=== PATIENT | female | born 1985 | race Caucasian/White ===

== ENCOUNTER 2024-06-24 06:41 | Day surgery (SDC) | payer OTHER ==
[2012-02-17 20:41] VITALS: BP 139/88
[2024-06-24] MEDS ORDERED: dexAMETHasone sodium phosphate IJ ONE (06:42)
[2024-06-24] MEDS ORDERED: Sodium Chloride 0.9(Preservative Free) 10 ML IJ ONE (06:42)
[2024-06-24 07:13] LABS: HCG URINE TEST NEGATIVE (NEGATIVE)
[2024-06-24] MEDS ORDERED: propofoL IV ONE (08:37)
--- NOTE | 2024-06-24 11:07 | XRAY ---
Indication: Left L4-S1 transforaminal TWIN. Intraoperative fluoroscopy provided for 27 seconds. 4 digital spot image submitted for interpretation demonstrates posterior needle tips projecting over expected left L4 and L5 nerve roots. Small amount of contrast injected for needle tip placement. Correlate with intraoperative findings/report.
--- NOTE | 2024-06-24 11:09 | XRAY ---
27 seconds of fluoroscopy was used in surgery for a left L4-S1 transforaminal TWIN.
== END 2024-06-24 09:05 | disposition home or self-care (01) ==
LOC: SDC-PAIN 06:41
PROVIDERS: ATTEND Psychiatry & Neurology Pain Medicine
DX: M54.16 Radiculopathy, lumbar region (principal); E11.9 Type 2 diabetes mellitus without complications
CPT/HCPCS: 64483; 64484; 72100; 77003; 81025; 82947; J1100; J2704; Q9966

== ENCOUNTER 2025-01-05 06:45 | Day surgery (SDC) | payer OTHER ==
[2012-02-17 20:41] VITALS: BP 139/88
[2025-01-05] MEDS ORDERED: LIDOCAINE HCL 1% 50 MG/5 ML VL IJ ONE (06:46)
[2025-01-05] MEDS ORDERED: Sodium Chloride 0.9(Preservative Free) 10 ML IJ ONE (06:46)
[2025-01-05] MEDS ORDERED: methylPREDNISolone acetate IM ONE (06:46)
[2025-01-05 07:32] LABS: HCG URINE TEST NEGATIVE (NEGATIVE)
[2025-01-05] MEDS ORDERED: propofoL IV ONE (08:32)
[2025-01-05] MEDS ORDERED: MORPHINE SULFATE 2 MG INJ ONE (08:53)
[2025-01-05] MEDS ORDERED: Lactated Ringers 1,000 ML IV ONE (09:04)
--- NOTE | 2025-01-05 11:55 | XRAY ---
Indication: Lumbar TWIN. Intraoperative fluoroscopy provided for 11 seconds. 2 digital spot image submitted for interpretation demonstrates posterior needle tip projecting posterior to L4-L5 interspace. Small amount of contrast injected for needle tip placement. Correlate with intraoperative findings/report.
--- NOTE | 2025-01-05 12:56 | XRAY ---
11 seconds of fluoroscopy was used in surgery for a lumbar TWIN.
== END 2025-01-05 09:19 | disposition home or self-care (01) ==
LOC: SDC-PAIN 06:45
PROVIDERS: ATTEND Psychiatry & Neurology Pain Medicine
DX: M54.16 Radiculopathy, lumbar region (principal); E11.9 Type 2 diabetes mellitus without complications

== ENCOUNTER 2025-01-18 07:33 | Day surgery (SDC) | payer OTHER ==
[2025-01-18] MEDS ORDERED: NEURONTIN ONE (07:53)
[2025-01-18] MEDS ORDERED: celeBREX 100 MG ONE (07:53)
[2025-01-18] MEDS ORDERED: TYLENOL EXTRA STRENGTH 500 MG ONE (07:53)
[2025-01-18] MEDS ORDERED: Decadron 4 MG ONE (07:54)
[2025-01-18] MEDS: celeBREX 100 MG PO ONE (07:58)
[2025-01-18] MEDS: NEURONTIN PO ONE (07:59)
[2025-01-18] MEDS: TYLENOL EXTRA STRENGTH 500 MG PO ONE (07:59)
[2025-01-18] MEDS: Decadron 4 MG PO ONE (07:59)
[2025-01-18] MEDS: KEFZOL 1 GM** 3 G in Sodium Chloride 0.9% 50 ML 50 ML IV ONE (08:03)
[2025-01-18 08:08] LABS: HCG URINE TEST NEGATIVE (NEGATIVE)
[2025-01-18 08:12] VITALS: RESP 16
[2025-01-18 08:25] LABS: Hematocrit 41.8 % (34.1-44.9); Hemoglobin 13.6 g/dL (11.2-15.7); Mean Corpuscular Hemoglobin 28.6 pg (25.6-32.2); Mean Corpuscular Hgb Concent. 32.5 g/dL (32.2-35.5); Platelet Count 328 x10^3/uL (182-369); Red Blood Count 4.75 x10^6/uL (3.93-5.22); White Blood Count 9.8 x10^3/uL (3.98-10.04)
[2025-01-18] MEDS ORDERED: PITRESSIN 20 UNITS ONE (08:48)
[2025-01-18 08:49] LABS: Calcium 8.7 mg/dL (8.4-10.2); Carbon Dioxide 23.0 mmol/L (22-30); Creatinine 1 0.71 mg/dL (0.52-1.04); EST GLOMERULAR FILTRATION RATE 110.9 ML/MIN; Glucose 110.0 mg/dL (74-106); Potassium 4.1 mmol/L (3.5-5.1); SGOT/AST 25.0 U/L (14-36); SGPT/ALT 28.0 U/L (0-35); Total Protein 7.2 g/dL (6.3-8.2)
[2025-01-18] MEDS ORDERED: BRIDION 200MG/2ML IV ONE (08:55)
[2025-01-18] MEDS ORDERED: ROCURONIUM BROMIDE IV ONE (08:55)
[2025-01-18] MEDS ORDERED: propofoL IV ONE (08:55)
[2025-01-18] MEDS ORDERED: SUBLIMAZE 100 MCG/2 ML ONE ×2 (08:55→09:54)
[2025-01-18] MEDS ORDERED: Xylocaine-Mpf 2% 5 Ml Vial ONE (08:55)
[2025-01-18] MEDS ORDERED: Zofran 4 MG/2 ML VIAL ONE ×2 (08:55→10:49)
[2025-01-18] MEDS ORDERED: DEXMEDETOMIDINE 80 MCG/20ML-NS IV ONE (09:47)
[2025-01-18] MEDS ORDERED: TORAdol 30 mg Injection ONE (09:57)
[2025-01-18 11:37] VITALS: TEMP 96.8
[2025-01-18 12:19] VITALS: BP 114/58; PULSE 91; O2SAT 98
[2025-01-18 14:37] LABS: Glucose, Urine Negative (Negative); Protein,Urine Dip Negative (Negative); WBC 0-2 /HPF (0-5)
--- NOTE | 2025-01-20 11:25 | OP ---
SURGERY DATE/TIME: 01/18/2025 [id number] PREOPERATIVE DIAGNOSIS: Stress incontinence. POSTOPERATIVE DIAGNOSIS: Stress incontinence. PROCEDURE: Placement of Altis bladder sling and cystoscopy. SURGEON: Lalo Becerril DO CHEMIST PHARMACEUTICAL: Valerie Banks ANESTHESIA: General. ESTIMATED BLOOD LOSS: Minimal. COMPLICATIONS: None. INDICATIONS: The risks, benefits, indications, and alternatives of the procedure were reviewed with the patient prior to the procedure. The patient understood the risks of infection, bleeding, bowel injury, bladder injury, ureteral injury, pelvic infection, thromboembolic disorder, possible continued stress incontinence, urge incontinence, groin discomfort, mesh erosion, mesh extrusion, and dyspareunia that can be associated with this procedure, however, desires to have this procedure as a possible means to alleviate her current medical condition. DESCRIPTION OF PROCEDURE AND FINDINGS: At this point, the patient was taken to the operating room, given general sedation and placed in dorsal lithotomy position, prepped and draped in the usual sterile fashion. A weighted speculum was then placed in the patient's vagina, and approximately 30 mL of diluted vasopressin was injected approximately 1.5 cm below the urethral meatus or approximately 10 mL was injected in the midline and additional 20 mL on either side of the vaginal sulcus. From this point, a vertical vaginal incision of approximately 1.5 cm was made in the midline, 1.5 cm below the urethral meatus. The periurethral space was dissected bilaterally using sharp and blunt dissection to create a tract toward the obturator internus fascia on each side. The Altis Single Incision Sling System was then prepared. The static anchor was then introduced first on the surgeon's right side using the curved helical introducer and deployed into the obturator internus fascia. The dynamic anchor was then deployed on the left side in a similar fashion. Both anchors were deployed with tactile and audible confirmation. The sling was then adjusted to lie flat beneath the midurethra without tension. From this point, the cystoscope was then introduced into the bladder to evaluate for any injury, and both ureteral orifices were visualized with normal efflux with no evidence of bladder or urethral injury that was seen. At this point, the cystoscope was removed, and the incision was closed with 2-0 Vicryl suture where hemostasis was obtained. From this point, the patient was then taken out of the dorsal lithotomy position, was taken out of anesthesia, was then taken to the recovery room in stable condition. All instruments and laps were accounted for x2.
== END 2025-01-18 12:34 | disposition home or self-care (01) ==
LOC: SDC 07:33
PROVIDERS: ATTEND Obstetrics & Gynecology
DX: N39.3 Stress incontinence (female) (male) (principal); I10 Essential (primary) hypertension; E11.9 Type 2 diabetes mellitus without complications

== ENCOUNTER 2025-01-23 15:05 | Emergency (ER) | payer OTHER ==
--- NOTE | 2025-01-23 15:26 | ERPHSYRPT ---
- History of Present Illness Time Seen by Provider: 01/23/25 15:26 Historian: patient Exam Limitations: no limitations Physician History: Presents emergency room with 4-month history of right upper quadrant abdominal pain. Patient reports that his worsened over the past week. She does not have a gallbladder. Recently had bladder sling placed. Denies fevers. She is nauseous but no vomiting. She does report some diarrhea. No chest pain, shortness of breath or swelling. Allergies/Adverse Reactions: adhesive tape Allergy (Verified 01/23/25 15:27) blisters, hives Home Medications: Lurasidone HCl [Latuda] 20 mg PO DAILY 12/16/24 [History] Terazosin HCl 1 mg PO DAILY 12/16/24 [History] Estradiol [Gay] 1 each TD .Q2DAYS 01/18/25 [History] Progesterone, Micronized [Progesterone] 100 mg PO DAILY 01/18/25 [History] Hx Tetanus, Diphtheria Vaccination/Date Given: Yes Hx Influenza Vaccination/Date Given: Yes Hx Pneumococcal Vaccination/Date Given: Yes Travel Risk - Emerging Infectious Disease Are you exhibiting symptoms associated with any current EIDs: No - Review of Systems All Other Systems: Reviewed and Negative - Past Medical History Pertinent Past Medical History: Yes Neurological History: No Pertinent History ENT History: No Pertinent History Cardiac History: No Pertinent History Respiratory History: No Pertinent History Musculoskeletal History: No Pertinent History GI Medical History: No Pertinent History History: No Pertinent History Psycho-Social History: Depression Female Reproductive Disorders: No Pertinent History Other Medical History: BRAIN TUMER, OVARIAN CYST. - Past Surgical History Past Surgical History: Yes Neuro Surgical History: No Pertinent History Cardiac: No Pertinent History Respiratory: No Pertinent History Gastrointestinal: Cholecystectomy Genitourinary: No Pertinent History Musculoskeletal: No Pertinent History Female Surgical History: Tubal Ligation Other Surgical History: ERCP, cervical ablation, back injection - Female History Hx Last Menstrual Period: NOW - Social History Smoking Status: Former smoker Exposure to second hand smoke: No - Nursing Vital Signs Nursing Vital Signs: Initial Vital Signs Temperature 97.7 F 01/23/25 15:17 Pulse Rate 90 01/23/25 15:17 Blood Pressure 136/96 01/23/25 15:17 O2 Sat by Pulse Oximetry 98 01/23/25 15:17 Pain Scale Pain Intensity 6 - Physical Exam General Appearance: no apparent distress, obese Eye Exam: eyes nml inspection Neck Exam: normal inspection, supple, full range of motion Respiratory Exam: normal breath sounds, lungs clear, airway intact, No respiratory distress Cardiovascular Exam: regular rate/rhythm, normal heart sounds, capillary refill <2 sec, No edema Gastrointestinal/Abdomen Exam: soft, normal bowel sounds, tenderness (ruq, epigastric) Neurologic Exam: alert, oriented x 3, cooperative Skin Exam: normal color, warm, dry, No rash SpO2 Interpretation: normal O2 Delivery: Room Air - Course Nursing assessment & vital signs reviewed: Yes EKG Interpreted by Me: RATE (90), Sinus Rhythm, NORMAL AXIS, NORMAL INTERVALS, NORMAL QRS, NORMAL ST-T Ordered Tests: Active Orders 24 hr Category Date Time Status EKG-ER Only STAT Care 01/23/25 15:28 Active IV Insertion STAT Care 01/23/25 15:28 Active ABDOMEN AND PELVIS W/0 CONTRAS [CT] Stat Exams 01/23/25 16:50 Completed CBC W DIFF Stat Lab 01/23/25 15:35 Completed CMP Stat Lab 01/23/25 15:35 Completed CULTURE,URINE Stat Lab 01/23/25 15:20 Received HCG, Quantitative (Inhouse) Stat Lab 01/23/25 15:35 Completed LIPASE Stat Lab 01/23/25 15:35 Completed Lactic Acid Stat Lab 01/23/25 15:35 Completed TROPONIN Q4H Lab 01/23/25 15:35 Completed TROPONIN Q4H Lab 01/23/25 19:30 Ordered TROPONIN Q4H Lab 01/23/25 23:30 Ordered TSH, 3RD Generation Stat Lab 01/23/25 15:35 Completed UA W/RFX UR CULTURE Stat Lab 01/23/25 15:20 Completed VENOUS BLOOD GAS Stat Lab 01/23/25 15:35 Completed Medication Summary Discontinued Medications Generic Name Dose Route Start Last Admin Trade Name Freq PRN Reason Stop Dose Admin Droperidol 1.25 mg 01/23/25 15:28 01/23/25 15:51 Droperidol 5 Mg/2 Ml Vial IV 01/23/25 15:29 1.25 mg STAT ONE Administration Droperidol Confirm 01/23/25 15:49 Droperidol 5 Mg/2 Ml Vial Administered 01/23/25 15:50 Dose 5 mg .ROUTE .STK-MED ONE Sodium Chloride 1,000 mls @ 999 mls/hr 01/23/25 15:28 01/23/25 17:08 Sodium Chloride 0.9% 1000 Ml IV 01/23/25 16:28 Infused .Q1H1M STA Infusion Sodium Chloride Confirm 01/23/25 15:49 Sodium Chloride 0.9% 1000 Ml Administered 01/23/25 15:50 Dose 1,000 mls @ ud .ROUTE .STK-MED ONE Ceftriaxone Sodium 1 gm in 100 mls @ 200 mls/hr 01/23/25 16:50 01/23/25 17:47 Rocephin 1 Gm / 100 Ml Nacl IV 01/23/25 17:19 Infused STAT ONE Infusion Ceftriaxone Sodium Confirm 01/23/25 17:06 Rocephin 1 Gm / 100 Ml Nacl Administered 01/23/25 17:07 Dose 1 gm in 100 mls @ ud IV .STK-MED ONE Lab/Rad Data: Laboratory Result Diagrams 01/23/25 15:35 01/23/25 15:35 Laboratory Results 01/23/25 01/23/25 01/23/25 Range/Units 15:35 15:35 15:35 WBC (3.98-10.04) x10^3/uL RBC (3.93-5.22) x10^6/uL Hgb (11.2-15.7) g/dL Hct (34.1-44.9) % MCV (79.4-94.8) fL MCH (25.6-32.2) pg MCHC (32.2-35.5) g/dL RDW (11.7-14.4) % Plt Count (182-369) x10^3/uL MPV (9.4-12.3) fL Gran % (34.0-71.1) % Immature Gran % (Auto) (0.001-0.429) % Nucleat RBC Rel Count (0.00-0.2) % Eos # (Auto) (0.04-0.36) x10^3/uL Immature Gran # (Auto) (0.001-0.031) x10^3u/L Absolute Lymphs (auto) (1.18-3.74) x10^3/uL Absolute Monos (auto) (0.24-0.86) x10^3/uL Absolute Nucleated RBC (0.00-0.012) x10^3u/L Lymphocytes % (19.3-51.7) % Monocytes % (4.7-12.5) % Eosinophils % (0.7-5.8) % Basophils % (0.1-1.2) % Absolute Granulocytes (1.56-6.13) x10^3/uL Basophils # (0.01-0.08) x10^3/uL pO2/FiO2 Ratio 21.0 % VBG pH 7.41 (7.32-7.42) VBG pCO2 at Pat Temp 45 (42-55) mm/Hg VBG pO2 at Pat Temp 30 (25-40) mm/Hg VBG HCO3 28.5 H (22-28) meq/L VBG O2 Sat (Salvatore) 56.9 L (95-100) VBG Base Excess 3.2 H (-2.0-2.0) VBG Hemoglobin 13.3 VBG Carboxyhemoglobin 5.2 (0.0-6.9) % T HGB POC Potassium 4.2 (3.5-5.1) Sodium (135-145) mmol/L Potassium (3.5-5.1) mmol/L Chloride (98-107) mmol/L Carbon Dioxide (22-30) mmol/L Anion Gap (5-15) MEQ/L BUN (7-17) mg/dL Creatinine (0.52-1.04) mg/dL Estimated GFR ML/MIN Glucose (74-106) mg/dL Lactic Acid (0.4-2.0) Calcium (8.4-10.2) mg/dL Total Bilirubin (0.2-1.3) mg/dL AST (14-36) U/L ALT (0-35) U/L Alkaline Phosphatase (38-126) U/L Troponin I < 0.012 (0.000-0.033) ng/mL Serum Total Protein (6.3-8.2) g/dL Albumin (3.5-5.0) g/dL Lipase (23-300) U/L Free T4 1.12 (0.78-2.19) ng/dL TSH 3rd Generation (0.470-4.680) mIU/L Beta HCG, Quant mIU/ml Urine Color (Yellow) Urine Appearance (Clear) Urine pH (4.6-8.0) Ur Specific [place] (1.005-1.030) Urine Protein (Negative) Urine Glucose (UA) (Negative) mg/dL Urine Ketones (Negative) Urine Blood (Negative) Urine Nitrite (Negative) Urine Bilirubin (Negative) Urine Urobilinogen (0.2) mg/dL Ur Leukocyte Esterase (Negative) U Hyaline Cast (Auto) (0-2) /LPF Urine Microscopic RBC (0-5) /HPF Urine Microscopic WBC (0-5) /HPF Ur Epithelial Cells (None Seen) /HPF Urine Bacteria (None Seen) /HPF Urine Culture Reflexed (NO) 01/23/25 01/23/25 01/23/25 Range/Units 15:35 15:35 15:35 WBC 12.4 H (3.98-10.04) x10^3/uL RBC 4.50 (3.93-5.22) x10^6/uL Hgb 12.6 (11.2-15.7) g/dL Hct 40.0 (34.1-44.9) % MCV 88.9 (79.4-94.8) fL MCH 28.0 (25.6-32.2) pg MCHC 31.5 L (32.2-35.5) g/dL RDW 12.9 (11.7-14.4) % Plt Count 358 (182-369) x10^3/uL MPV 9.2 L (9.4-12.3) fL Gran % 67.7 (34.0-71.1) % Immature Gran % (Auto) 1.1 H (0.001-0.429) % Nucleat RBC Rel Count 0.0 (0.00-0.2) % Eos # (Auto) 0.21 (0.04-0.36) x10^3/uL Immature Gran # (Auto) 0.14 H (0.001-0.031) x10^3u/L Absolute Lymphs (auto) 2.84 (1.18-3.74) x10^3/uL Absolute Monos (auto) 0.76 (0.24-0.86) x10^3/uL Absolute Nucleated RBC 0.00 (0.00-0.012) x10^3u/L Lymphocytes % 22.9 (19.3-51.7) % Monocytes % 6.1 (4.7-12.5) % Eosinophils % 1.7 (0.7-5.8) % Basophils % 0.5 (0.1-1.2) % Absolute Granulocytes 8.40 H (1.56-6.13) x10^3/uL Basophils # 0.06 (0.01-0.08) x10^3/uL pO2/FiO2 Ratio % VBG pH (7.32-7.42) VBG pCO2 at Pat Temp (42-55) mm/Hg VBG pO2 at Pat Temp (25-40) mm/Hg VBG HCO3 (22-28) meq/L VBG O2 Sat (Salvatore) (95-100) VBG Base Excess (-2.0-2.0) VBG Hemoglobin VBG Carboxyhemoglobin (0.0-6.9) % T HGB POC Potassium (3.5-5.1) Sodium 137 (135-145) mmol/L Potassium 4.2 (3.5-5.1) mmol/L Chloride 106 (98-107) mmol/L Carbon Dioxide 26 (22-30) mmol/L Anion Gap 9.3 (5-15) MEQ/L BUN 10 (7-17) mg/dL Creatinine 0.75 (0.52-1.04) mg/dL Estimated GFR 103.8 ML/MIN Glucose 107 H (74-106) mg/dL Lactic Acid 0.9 (0.4-2.0) Calcium 8.9 (8.4-10.2) mg/dL Total Bilirubin < 0.10 L (0.2-1.3) mg/dL AST 26 (14-36) U/L ALT 30 (0-35) U/L Alkaline Phosphatase 78 (38-126) U/L Troponin I (0.000-0.033) ng/mL Serum Total Protein 7.3 (6.3-8.2) g/dL Albumin 4.0 (3.5-5.0) g/dL Lipase 73 (23-300) U/L Free T4 (0.78-2.19) ng/dL TSH 3rd Generation 2.397 (0.470-4.680) mIU/L Beta HCG, Quant < 2.39 mIU/ml Urine Color (Yellow) Urine Appearance (Clear) Urine pH (4.6-8.0) Ur Specific [place] (1.005-1.030) Urine Protein (Negative) Urine Glucose (UA) (Negative) mg/dL Urine Ketones (Negative) Urine Blood (Negative) Urine Nitrite (Negative) Urine Bilirubin (Negative) Urine Urobilinogen (0.2) mg/dL Ur Leukocyte Esterase (Negative) U Hyaline Cast (Auto) (0-2) /LPF Urine Microscopic RBC (0-5) /HPF Urine Microscopic WBC (0-5) /HPF Ur Epithelial Cells (None Seen) /HPF Urine Bacteria (None Seen) /HPF Urine Culture Reflexed (NO) 01/23/25 Range/Units 15:20 WBC (3.98-10.04) x10^3/uL RBC (3.93-5.22) x10^6/uL Hgb (11.2-15.7) g/dL Hct (34.1-44.9) % MCV (79.4-94.8) fL MCH (25.6-32.2) pg MCHC (32.2-35.5) g/dL RDW (11.7-14.4) % Plt Count (182-369) x10^3/uL MPV (9.4-12.3) fL Gran % (34.0-71.1) % Immature Gran % (Auto) (0.001-0.429) % Nucleat RBC Rel Count (0.00-0.2) % Eos # (Auto) (0.04-0.36) x10^3/uL Immature Gran # (Auto) (0.001-0.031) x10^3u/L Absolute Lymphs (auto) (1.18-3.74) x10^3/uL Absolute Monos (auto) (0.24-0.86) x10^3/uL Absolute Nucleated RBC (0.00-0.012) x10^3u/L Lymphocytes % (19.3-51.7) % Monocytes % (4.7-12.5) % Eosinophils % (0.7-5.8) % Basophils % (0.1-1.2) % Absolute Granulocytes (1.56-6.13) x10^3/uL Basophils # (0.01-0.08) x10^3/uL pO2/FiO2 Ratio % VBG pH (7.32-7.42) VBG pCO2 at Pat Temp (42-55) mm/Hg VBG pO2 at Pat Temp (25-40) mm/Hg VBG HCO3 (22-28) meq/L VBG O2 Sat (Salvatore) (95-100) VBG Base Excess (-2.0-2.0) VBG Hemoglobin VBG Carboxyhemoglobin (0.0-6.9) % T HGB POC Potassium (3.5-5.1) Sodium (135-145) mmol/L Potassium (3.5-5.1) mmol/L Chloride (98-107) mmol/L Carbon Dioxide (22-30) mmol/L Anion Gap (5-15) MEQ/L BUN (7-17) mg/dL Creatinine (0.52-1.04) mg/dL Estimated GFR ML/MIN Glucose (74-106) mg/dL Lactic Acid (0.4-2.0) Calcium (8.4-10.2) mg/dL Total Bilirubin (0.2-1.3) mg/dL AST (14-36) U/L ALT (0-35) U/L Alkaline Phosphatase (38-126) U/L Troponin I (0.000-0.033) ng/mL Serum Total Protein (6.3-8.2) g/dL Albumin (3.5-5.0) g/dL Lipase (23-300) U/L Free T4 (0.78-2.19) ng/dL TSH 3rd Generation (0.470-4.680) mIU/L Beta HCG, Quant mIU/ml Urine Color Yellow (Yellow) Urine Appearance Cloudy A (Clear) Urine pH 5.5 (4.6-8.0) Ur Specific [place] 1.025 (1.005-1.030) Urine Protein Negative (Negative) Urine Glucose (UA) Negative (Negative) mg/dL Urine Ketones Negative (Negative) Urine Blood Moderate A (Negative) Urine Nitrite Negative (Negative) Urine Bilirubin Negative (Negative) Urine Urobilinogen 0.2 (0.2) mg/dL Ur Leukocyte Esterase Moderate A (Negative) U Hyaline Cast (Auto) NONE SEEN (0-2) /LPF Urine Microscopic RBC 6-10 A (0-5) /HPF Urine Microscopic WBC 21-50 A (0-5) /HPF Ur Epithelial Cells Few (None Seen) /HPF Urine Bacteria Few A (None Seen) /HPF Urine Culture Reflexed YES (NO) - Progress Progress: improved Progress Note: Patients symptoms not typical for emergent causes of abdominal pain such as, but not limited to, appendicitis, abdominal aortic aneurysm, surgical biliary disease, pancreatitis, SBO, mesenteric ischemia, serious intra-abdominal bacterial illness. Presentation also not typical of gynecologic emergencies such as TOA, Ovarian Torsion, PID. Not Ectopic. Doubt atypical ACS. CBC,CMP,Lipase,TSH,T4,Troponin - unremarkable CT A/P shows mesenteric paniculitis treat with prednisone burst and outpatient f/u UA shows UTI gave Ceftriaxone in ED, dc home with keflex Disposition: Patient will be discharged with strict return precautions and follow up with primary MD within 12-24 hours for further evaluation. Counseled pt/family regarding: lab results, diagnosis, need for follow-up, rad results Medical Desision Making - Diagnostic Testing Diagnostic test were ordered, analyzed, and reviewed by me: Yes Radiological Interpretation: Interpreted by me, Reviewed by me, Teleradiologist Report - Risk of complications The pt has a mod risk of morbidity or mortality based on: Need for prescription drug management - Departure Departure Disposition: Home Clinical Impression: UTI (urinary tract infection), Mesenteric panniculitis Condition: Stable Critical Care Time: No Referrals: NORIS AQUINO NP [Primary Care Provider, [facility]] - Follow up/PCP as directed Instructions: Mesenteric Lymphadenitis Prescriptions: Cephalexin Mh 500 mg [Keflex 500 mg] 500 mg PO TID 7 Days #21 cap predniSONE [Prednisone] 50 mg PO DAILY 4 Days #4 tablet
[2025-01-23 15:27] VITALS: PULSE 90; TEMP 97.7
[2025-01-23 15:42] LABS: BASOPHIL % 0.5 % (0.1-1.2); Basophil (Absolute #) 0.06 x10^3/uL (0.01-0.08); Eosinophil (Absolute #) 0.21 x10^3/uL (0.04-0.36); Hematocrit 40.0 % (34.1-44.9); Hemoglobin 12.6 g/dL (11.2-15.7); IMMATURE GRAN # 0.14 x10^3u/L (0.001-0.031); IMMATURE GRAN % 1.1 % (0.001-0.429); Lymphocyte (Absolute #) 2.84 x10^3/uL (1.18-3.74); Mean Corpuscular Hemoglobin 28.0 pg (25.6-32.2); Mean Corpuscular Hgb Concent. 31.5 g/dL (32.2-35.5); Monocyte (Absolute #) 0.76 x10^3/uL (0.24-0.86); NUCLEATED RBC # 0.00 x10^3u/L (0.00-0.012); NUCLEATED RBC % 0.0 % (0.00-0.2); Platelet Count 358 x10^3/uL (182-369); Red Blood Count 4.50 x10^6/uL (3.93-5.22); White Blood Count 12.4 x10^3/uL (3.98-10.04)
[2025-01-23 15:49] LABS: VBG BASE EXCESS 3.2 (-2.0-2.0); VBG CARBOXYHEMOGLOBIN 5.2 % T HGB (0.0-6.9); VBG FIO2 21.0 %; VBG HCO3- 28.5 meq/L (22-28); VBG HEMOGLOBIN 13.3; VBG O2 SATURATION 56.9 (95-100); VBG PCO2 45.0 mm/Hg (42-55); VBG PO2 30.0 mm/Hg (25-40); VBG POTASSIUM 4.2 (3.5-5.1)
[2025-01-23] MEDS ORDERED: Inapsine 5 MG/2 ML ONE (15:49)
[2025-01-23 15:51] LABS: Glucose, Urine Negative (Negative); Protein,Urine Dip Negative (Negative); WBC 21-50 /HPF (0-5)
[2025-01-23] MEDS: Inapsine 5 MG/2 ML IV ONE (15:51)
[2025-01-23 16:31] LABS: Calcium 8.9 mg/dL (8.4-10.2); Carbon Dioxide 26 mmol/L (22-30); Creatinine 1 0.75 mg/dL (0.52-1.04); EST GLOMERULAR FILTRATION RATE 103.8 ML/MIN; Glucose 107 mg/dL (74-106); Potassium 4.2 mmol/L (3.5-5.1); SGOT/AST 26 U/L (14-36); SGPT/ALT 30 U/L (0-35); Total Protein 7.3 g/dL (6.3-8.2)
[2025-01-23] MEDS ORDERED: ROCEPHIN 1 GM / 100 ML NaCl 1 GM/100 ML IVPB IV ONE (17:06)
[2025-01-23] MEDS: ROCEPHIN 1 GM / 100 ML NaCl 1 GM/100 ML IVPB IV ONE (17:08)
--- NOTE | 2025-01-23 17:44 | XRAY ---
CLINICAL HISTORY: abd pain COMPARISON: 02/17/2012 CT. TECHNIQUE: Non-contrast CT of the abdomen and pelvis was performed, with the following protocol: axial images, and reconstructed coronal and sagittal images. No intravenous contrast was administered. One of the following dose reduction techniques was utilized for this exam: automated exposure control, adjustment of the mA and/or kV according to patient size, and use of iterative reconstruction. DLP: 1345 mGy-cm, CTDI 24 mGy. FINDINGS: Abdomen: Liver: The liver is mildly enlarged, measuring 18.0 cm craniocaudally. It is normal in shape and demonstrates low density. No focal lesions, cysts, or masses are identified. Gallbladder and Biliary System: The gallbladder is not seen. Metallic clips are present in the gallbladder fossa. Pancreas: The pancreatic head, body, and tail are visualized and appear normal in size and density. No pancreatic masses or calcifications are noted. Spleen: The spleen is normal in size, shape, and density. No splenic lesions or masses are identified. Tiny calcifications are noted. Kidneys and Adrenal Glands: Both kidneys are normal in size, shape, and position. Cortical thickness is within normal limits. No renal calculi or hydronephrosis are present. The adrenal glands are unremarkable. Appendix: The appendix is normal in size without periappendiceal fat stranding and without an appendicolith. There is no evidence of appendiceal abscess or perforation. Pelvis: Urinary Bladder: The urinary bladder is normal in contour and wall thickness. No intraluminal lesions are identified. Uterus: The uterus is normal in size and contour. No masses or abnormal thickening are present. Ovaries: The right ovary measures 3.1 x 3.4 x 2.6 cm. The left ovary measures 2.1 x 2.2 x 2.8 cm. No cysts are seen in either ovary on CT basis. Vagina: The vagina is normal in contour and wall thickness. Cervix: There is no evidence of mass or abnormal thickening. Peritoneal and Retroperitoneal Structures: Mesenteric fat stranding is present in the central abdomen, with prominent lymph nodes; findings are consistent with mesenteric panniculitis. No free fluid or abnormal fluid collections are identified within the abdomen or pelvis. No lymphadenopathy is noted. Bowel: The visualized bowel loops are normal in caliber and appearance. No evidence of bowel obstruction or wall thickening. Bones and Soft Tissues: The pelvic bones and soft tissues are unremarkable. No fractures or abnormal masses are identified. IMPRESSION: 1. No urinary stones, hydronephrosis, or CT evidence of adnexal cysts. The appendix is normal. 2. New mesenteric fat stranding in the central abdomen with redemonstration of prominent lymph nodes. Findings suggest mild mesenteric panniculitis. 3. Fatty mild hepatomegaly, stable. Electronically Signed by: Ben Ruvalcaba MD. (01/23/2025 17:43:18 EDT)
[2025-01-23] MEDS ORDERED: DELTASONE 20 MG ONE (18:03)
[2025-01-23] MEDS: DELTASONE 20 MG PO ONE (18:03)
[2025-01-23 18:06] VITALS: BP 148/94; O2SAT 99
== END 2025-01-23 18:12 | disposition home or self-care (01) ==
LOC: ED 15:05
DX: N39.0 Urinary tract infection, site not specified (principal); K65.4 Sclerosing mesenteritis; R10.11 Right upper quadrant pain; Z79.899 Other long term (current) drug therapy